=== PATIENT | male | born 1995 | race Hispanic/Latino ===

== ENCOUNTER 2021-03-04 13:05 | Emergency (ER) | payer OTHER ==
[~2021-03-04] VITALS: Ht 185.4 cm; Wt 163.3 kg
[2021-03-04] MEDS ORDERED: BACTRIM DS TAB1 EACH PO (14:32)
[2021-03-04] MEDS ORDERED: CEPHALEXIN500 MG PO (14:32)
== END 2021-03-04 14:50 | disposition home or self-care (01) ==
LOC: FSED 13:19
DX: L02.31 Cutaneous abscess of buttock (principal); E11.65 Type 2 diabetes mellitus with hyperglycemia
CPT/HCPCS: 10060; 99283